=== PATIENT | female | born 1945 | race Caucasian/White ===

== ENCOUNTER 2023-09-09 08:35 | Outpatient (REF) | payer MEDICARE, OTHER, SELFPAY ==
--- NOTE | ~2023-09-09 | XR_ITS ---
EXAMINATION: XR KNEE, LEFT CLINICAL INFORMATION: Left knee pain. COMPARISON: None available. TECHNIQUE: Three views of the left knee. FINDINGS: The patient is status post left total knee arthroplasty. There is no evidence of hardware fracture or loosening. No bony fracture or dislocation is seen. No lytic or sclerotic bony lesion is appreciated. No suprapatellar effusion is noted. Alignment is anatomic. XR/XR knee LT 3V IMPRESSION: No acute finding.
== END 2023-09-09 08:36 | disposition home or self-care (01) ==
LOC: HO.HOSX 08:35
PROVIDERS: Visit Provider Orthopaedic Surgery
DX: M25.562 Pain in left knee (principal)
CPT/HCPCS: 73562; 99212

== ENCOUNTER 2023-09-09 12:33 | Outpatient (AMB) | payer MEDICARE, OTHER, SELFPAY ==
--- NOTE | 2023-09-09 12:47 | MHC.OFFVIS ---
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 Smith s/p left TKA on 12/19/22. Patient reports she is doing well, stating no problems since surgery. She continues to do at home exercises as instructed. She reports mild intermittent discomfort in her knee. She denies any fevers or chills. She has completed formal physical therapy. She has returned to work at [employer]. Allergies Penicillins Allergy (Verified 09/09/23 12:56) Hives [facility] Surgical History (Updated 09/09/23 @ 12:57 by MEHRAN Urrutia) Hx of cataract surgery History of total left knee replacement Social History (Updated 09/09/23 @ 12:57 by MEHRAN Urrutia) Patient Tobacco Use Status: Never used Tobacco Current occupation: [employer] Physical Exam Vital Signs: BMI result Body Mass Index 33.1 Const Other: Well-nourished well-developed very friendly female awake alert and oriented x3 in no acute distress Extrem Other: Bilateral lower extremity examination shows good capillary refill, no skin lesions noted, normal sensation light touch Left knee examination shows that the surgical incision is well healed no erythema, full active extension and flexion to 120 degrees, her patella tracks well Results Reviewed Results Reviewed: X-rays of the patient's left knee taken today show a total knee arthroplasty in good position with no signs of loosening, no acute bony abnormalities Assessment & Plan Assessment & Plan (1) Left knee pain: Code(s): M25.562 - Pain in left knee Plan Ms. Kothari continues to do very well after undergoing left total knee replacement surgery on 12/19/2022. She will continue with her home exercise program. She does know to take antibiotics before any dental work. She will contact me prior to her annual follow-up appointment should any questions or concerns arise. Feel free to call me at any time should questions regarding her orthopedic management arise. I spent 22 minutes in reviewing the patient's records and imaging studies, seeing the patient and documenting in the medical record. Coding Level of Care Code Est Pt Level 2 (19343) Diagnoses Left knee pain M25.562
[2023-09-09 12:59] VITALS: BMI 33.1
== END 2023-09-09 13:16 | disposition home or self-care (01) ==
PROVIDERS: PCP Internal Medicine; Visit Provider Orthopaedic Surgery
DX: M25.562 Pain in left knee (principal)
CPT/HCPCS: 99212

== ENCOUNTER 2023-12-11 09:47 | Outpatient (AMB) | payer MEDICARE, OTHER, SELFPAY ==
[2023-12-11 09:50] VITALS: BMI 33.1
--- NOTE | 2023-12-11 09:50 | MHC.OFFVIS ---
Intake Vital Signs 12/11/23 09:50 Height 5 ft 1 in Weight 175 lb BMI 33.1 Intake Visit Reasons: OV-Left knee pain-Follow up Intake Note: Cristel is a 77 year old female who presents for follow up Left TKA on 11/18/2023. The patient reports mild intermittent discomfort in her left knee. She denies any fevers or chills. She does not take any medicines for discomfort. She continues with her home exercise program. The patient does have intermittent pain in her right knee. She wishes to hold off on right knee surgery for as long as possible. Allergies Penicillins Allergy (Verified 12/11/23 09:54) Hives Medication List - Last Reconciled 12/11/23 by Eldon Smith MD apixaban (Eliquis) 5 mg PO BID atorvastatin 40 mg PO DAILY lisinopril mg PO omeprazole 20 mg PO BID paroxetine HCl 20 mg PO DAILY PFSH Surgical History Hx of cataract surgery History of total left knee replacement Social History Patient Tobacco Use Status: Never used Tobacco Current occupation: [employer] Physical Exam Vital Signs: BMI result Body Mass Index 33.1 Const Other: Well-nourished well-developed very friendly female awake alert and oriented x3 in no acute distress Extrem Other: Bilateral lower extremity examination shows good capillary refill, no skin lesions noted, normal sensation light touch Left knee examination shows that the surgical incision is well healed, no erythema, full active extension and flexion to 120 degrees, her patella tracks well Assessment & Plan Assessment & Plan (1) Left knee pain: Code(s): M25.562 - Pain in left knee Plan Ms. Kothari continues to do very well after undergoing left total knee replacement surgery on 12/19/2022. She will continue with her home exercise program. She does know to take antibiotics before any dental work. She will contact me prior to her follow-up appointment should any questions or concerns arise. Feel free to call me at any time should questions regarding her orthopedic management arise. I spent 22 minutes in reviewing the patient's records and imaging studies, seeing the patient and documenting in the medical record. Coding Level of Care Code Est Pt Level 2 (87146) Diagnoses Left knee pain M25.565
== END 2023-12-11 10:17 | disposition home or self-care (01) ==
PROVIDERS: PCP Internal Medicine; Visit Provider Orthopaedic Surgery
DX: M25.562 Pain in left knee (principal); Z96.651 Presence of right artificial knee joint
CPT/HCPCS: 99213

== ENCOUNTER → 2023-12-11 09:47 | Outpatient (BNVA) | payer MEDICARE, OTHER, SELFPAY | PROVIDERS: PCP Internal Medicine; Visit Provider Orthopaedic Surgery | DX: M25.562 Pain in left knee (principal) | CPT/HCPCS: 99212 ==

== ENCOUNTER 2024-12-14 08:58 | Outpatient (REF) | payer MEDICARE, OTHER, SELFPAY ==
--- OUTSIDE RECORDS SUMMARY | 2024-12-15 09:15 | XMS_ITS | Data Portability ---
Author Organization [place] [facility] Paul[facility] Cooper [place] Address [address] [place] [address] Care Team Providers Care Vector Control Specialist Name Role Phone ELIZABETH JENNINGS Primary Care Provider Assessment Encounter Date Assessment Date Assessment LastModified by Organization Details LastModified Time 02/12/2023 02/12/2023 Ms. Kothari continues to do well after undergoing left total knee replacement surgery on December 19, 2022. She will continue with her physical therapy exercises. She does know to take antibiotics before any dental work. She will contact me prior to her follow-up appointment in 3 months should any questions or concerns arise. Feel free to call me at any time should questions regarding her orthopedic management arise. [email or web address] Not available 02/12/2023 15:18:16 04/23/2023 04/23/2023 This is a 77-year-old female who underwent a left total knee replacement surgery on December 19, [address] Smith. The patient appears to be doing well clinically. She knows to take her antibiotic prophylaxis prior to dental procedure. She will continue with her stretching exercise regimen. I will see her back in 3 months for repeat exam for which she may want to return to work at that point full-time. Patient agrees with the above-noted plan. Indirect care and treatment in conjunction with Dr. Acuña Additional treatment plan discussed with the patient in detail included the following; - Provider focused nonsteroidal anti-inflammator y regimen (discussed were the pros, cons, benefits and risks as well as any black box warnings) in patients over 60 years old they should be very cautious in taking these medications due to potential decreased kidney function and or elevated blood pressure. - Analgesic pain medication for pain suppression (discussed were the pros, cons, benefits and risks as well as any black box warnings) - The use of topical pain relieving medication were discussed - The use of ice to decrease inflammation and pain - The use of assistive ambulatory devices for ambulation and fall prevention - Formal specific guided physical therapy program I reviewed my findings at length with the patient today. ??We discussed the nature and etiology of this problem along with current treatment options. We discussed the expected course and outcomes and what to expect. We also discussed risks and benefits. ?? All of their questions were answered today, and there was exhibited understanding and comprehension of all that was discussed. Time Spent: 10 minutes were spent reviewing previous imaging and charting. ??10 minutes were spent obtaining patient history. ??5 minutes were spent on physical exam. ??5??minutes were spent explaining diagnosis and assessment. Today's documentation was made using voice recognition software. This note may contain grammatical errors secondary to the software. [email or web address] Not available 04/23/2023 09:26:57 Plan of Treatment Reminders Order Date Submit Date Provider Last Modified By Organization Details Last Modified Time Details Appointments None record ed. Lab None record ed. Referral None record ed. Procedures None record ed. Surgeries None record ed. Imaging None record ed. Medication Orders None record ed. Patient TargetsNo targets recorded. Patient InstructionsNo instructions recorded. Reason for Referral None Reported. Problems Name Problem SNOMED Code Status Onset Date Resolution Date Notes Provider Name and Address Organization Details Recorded Time Pain of left knee joint [id number] 7 Active 2022 Eldon Smith MD [address], [place], [address], [place] [facility] 15:04:36 Stiffness of left knee [id number] 2 Active 2022 EILEEN ODOM PA-C [address], [place], [address], [place] [facility] 09:27:05 Problem Notes None recorded. Procedures Surgical History Date Name Laterality Status Provider Name and Address Organization Details Recorded Time hysterectomy completed Ritika Fitzpatrick [facility] 02/10/2023 12:53:32 Shoulder Surgery completed Ritika Fitzpatrick [facility] 02/10/2023 12:54:06 Imaging Results None recorded. Procedure Notes None recorded. Medical Equipment None Reported. Allergies No known drug allergies Medications Name Sig Start Date Stop Date Status Note LastModified by Organization Details LastModified Time amoxicillin 500 mg capsule TAKE 2 CAPSULES BY MOUTH TO START THEN TAKE 1 CAPSULE EVERY 8 HOURS UNTIL FINISHED active Not Available Not Available No t Available atorvastatin 40 mg tablet TAKE 1 TABLET BY MOUTH EVERY DAY active Not Available Not Available No t Available prednisone 20 mg tablet TAKE 2 TABLETS ONCE DAILY FOR 3 DAYS THEN TAKE 1 TABLET DAILY active Not Available Not Available No t Available meclizine 12.5 mg tablet TAKE 2 TABLET BY MOUTH 3 TIMES A DAY, NEEDED FOR DIZZINESS active Not Available Not Available No t Available amoxicillin 500 mg tablet TAKE 4 TABS 1 HOUR PRIOR TO DENTAL APPOINTMENT active Not Available Not Available Not Available meloxicam 7.5 mg tablet active Not Available Not Available Not Available cephalexin 500 mg capsule TAKE 2 CAPSULES 1 HOUR BEFORE DENTAL APPPOINTMEN T active Not Available Not Available No t Available paroxetine 20 mg tablet TAKE 1 TABLET BY MOUTH EVERY DAY active Not Available Not Available No t Available lisinopril 10 mg tablet TAKE 1 AND 1/2 TABLETS BY MOUTH EVERY DAY active Not Available Not Available No t Available omeprazole 20 mg capsule,trevin yed release TAKE 1 CAPSULE BY MOUTH TWICE A DAY active Not Available Not Available No t Available fluticasone propionate 50 mcg/actuatio n nasal spray,suspen anne SPRAY 2 SPRAYS INTO EACH NOSTRIL EVERY DAY active Not Available Not Available No t Available ipratropium bromide 21 mcg (0.03 %) nasal spray INHALE 2 SPRAY NASALLY 3 TIMES A DAY DIRECTED active Not Available Not Available Not Available oxycodone 5 mg tablet active Not Available Not Available No t Available atorvastatin active Not Available Not Available Not Available amoxicillin active Not Available Not A vailable Not Available omeprazole active Not Available Not Av ailable Not Available lisinopril meloxicam active Not Available Not Available Not Available Paxil active Not Available Not Availa ble Not Available Eliquis 5 mg tablet TAKE 1 TABLET BY MOUTH TWICE A DAY active Not Available Not Available No t Available apixaban active Not Available Not Avai lable Not Available Prolensa 0.07 % eye drops INSTILL 1 DROP IN OPERATED EYE AT BEDTIME FOR 3 WEEKS active Not Available Not Available No t Available Vitals None Recorded Social History None recorded. Functional Status None recorded. Mental Status None recorded. Family History Relationship Description Onset Age of this Age Resolved Age Notes LastModified by Organization Details LastModified Time Father Heart disease [email or web address] Not available 2022 12:51:47 Brother Heart disease [email or web address] Not available 2022 12:51:57 Brother Hypertensive disorder [email or web address] Not available 2022 12:52:16 Medical History Condition Response Hypertension Y Gynecological HistoryNo gynecological history recorded. Obstetrics History GPAL:G 0 P 0 0 0 0 Past Encounters Encounter ID Performer Location Encounter Start Date Encounter Closed Date Diagnosis/Indication Diagnosis SNOMED-CT Code Diagnosis ICD10 Code Diagnosis Note [id number] MD MAGDIEL [facility] [address] [place] [address] 02/12/2023 14:18:45 02/12/2023 15:16:10 Pain of left knee joint [id number] 59035 M25.562 [id number] MD MAGDIEL Pitt [facility] [address] [place] [address] 04/23/2023 09:07:17 04/23/2023 09:26:35 Stiffness of left knee [id number] 77253 M25.662 Health Concerns Section Related Observation LastModified by Organization Detai ls LastModified Time None Recorded Concern Status LastModified by Organization Details LastModified Time None Recorded Advance Directives Directive None Recorded Payers Encounter Date Sequence Insurance Name Policy Number Policy Torres Covered Member ID Torres Member ID Guarantor Name 02/12/2023 [address] [place]: [facility] [employer] Cristel Kothari [id number] Cristel Kothari 04/23/2023 [address] MED[place]: [facility] [employer] Cristel Kothari [id number] Cristel Ruelasronte 04/23/2023 2 [facility] Paula Kothari [id number] Cristel Kothari Notes Date Note Type Note Provider Name and Address Organization Details Recorded Time 02/12/2023 text/html The patient presents with complaints of mild intermittent discomfort in her left knee after undergoing left total knee replacement surgery on December 19, 2022. She continues with her physical therapy exercises. She denies any fevers or chills. Eldon Smith MD [address] [address], [place], [address], [place] [facility] 02/12/2023 15:18:26 04/23/2023 text/html This is a 77-year-old female who underwent a left total knee replacement surgery on December 19, [address] Smith. She states she is doing her physical therapy as well as her home exercise program. She denies any fevers, chills, flulike symptoms, cough, shortness of breath. She states occasional stiffness otherwise doing well. EILEEN ODOM PA-C [address], [place], [address], [place] [facility] 04/23/2023 09:28:35 OBGyn Episode No OBEpisode recorded.
--- OUTSIDE RECORDS SUMMARY | 2024-12-15 09:15 | XMS_ITS ---
Author Name [facility] Organization Unknown History of Medication Use Medication Directions Dispensed Refills Start Date End Date Stat prednisone 20 mg tablet TAKE 2 TABLETS ONCE DAILY FOR 3 DAYS THEN TAKE 1 TABLET DAILY 04/25/2023 active omeprazole 04/25/2023 active lisinopril 10 mg tablet TAKE 1 AND 1/2 TABLETS BY MOUTH EVERY DAY 04/25/2023 active Eliquis 5 mg tablet TAKE 1 TABLET BY MOUTH TWICE A DAY 04/25/2023 active Paxil 04/25/2023 active paroxetine 20 mg tablet TAKE 1 TABLET BY MOUTH EVERY DAY 04/25/2023 active atorvastatin 04/25/2023 active omeprazole 20 mg capsule,delayed release TAKE 1 CAPSULE BY MOUTH TWICE A DAY 04/25/2023 active atorvastatin 40 mg tablet TAKE 1 TABLET BY MOUTH EVERY DAY 04/25/2023 active ipratropium bromide 21 mcg (0.03 %) nasal spray INHALE 2 SPRAY NASALLY 3 TIMES A DAY DIRECTED 04/25/2023 active meloxicam 7.5 mg tablet 04/25/2023 active apixaban 04/25/2023 active meclizine 12.5 mg tablet TAKE 2 TABLET BY MOUTH 3 TIMES A DAY, NEEDED FOR DIZZINESS 04/25/2023 active amoxicillin 04/25/2023 active amoxicillin 500 mg tablet TAKE 4 TABS 1 HOUR PRIOR TO DENTAL APPOINTMENT 04/25/2023 active fluticasone propionate 50 mcg/actuation nasal spray,suspension SPRAY 2 SPRAYS INTO EACH NOSTRIL EVERY DAY 04/25/2023 active amoxicillin 500 mg capsule TAKE 2 CAPSULES BY MOUTH TO START THEN TAKE 1 CAPSULE EVERY 8 HOURS UNTIL FINISHED 04/25/2023 active oxycodone 5 mg tablet 04/25/2023 active Problems Problem Status Onset Date Problem Type Date of Resoluti on Source Pain of left knee joint active 2023-02-12 ProblemAct [facility] Stiffness of left knee active 2023-04-23 ProblemAct [facility]
== END 2024-12-14 08:59 | disposition home or self-care (01) ==
LOC: HO.HOSX 08:58
PROVIDERS: Visit Provider Orthopaedic Surgery
DX: Z13.89 Encounter for screening for other disorder (principal)